=== PATIENT | male | born 1945 | race African-American/Black ===

== ENCOUNTER 2018-04-25 12:14 | Emergency (ER) | payer MEDICARE, OTHER ==
[~2018-04-25] VITALS: Ht 175.3 cm; Wt 102.5 kg
[~2018-04-25 12:14] MED LIST: CIPROFLOXACIN500 M2 ORAL; GABAPENTIN100 MG ORAL; GLIPIZIDE5 MG ORAL; LISINOPRIL5 MG ORAL; METFORMIN HCL500 M1 ORAL; NITROFURANTOIN100 M2 ORAL; NORCO 5-325 TA1 EACH ORAL; OFLOXACIN5 ML LEFT EAR
--- NOTE | 2018-04-25 12:45 | Emergency Room Report ---
History of Present Illness General Chief Complaint: Eye Problems Source: Patient Present Illness HPI patient is a 72-year-old male with significant past medical history of diabetes controlled, hypertension controlled, here complaining of one day of pain in the right eye and foreign body sensation. Patient also complains of yellow discharge from the right, denies blurred vision, denies pruritus, denies trauma to the eye. Denies SOB, chest pain, headache, dizziness as rhinorrhea Allergies: Coded Allergies: No Known Allergies (Unverified , 11/19/15) Patient History Past Medical History: see triage record Past Surgical History: none, unable to obtain Pertinent Family History: none Immunizations: UTD Reviewed Nursing Documentation: PMH: Agreed; PSxH: Agreed Nursing Documentation-PMH Past Medical History: No Stated History Hx Hypertension: Yes Hx Diabetes: Yes Review of Systems All Other Systems: negative except mentioned in HPI Physical Exam Vital Signs Date Time Temp Pulse Resp B/P (MAP) Pulse Ox O2 Delivery O2 Flow Rate FiO2 04/25/18 12:20 98.2 88 16 139/88 93 Room Air 98.2 Sp02 EP Interpretation: reviewed, normal General Appearance: normal inspection, well appearing, no apparent distress Eyes: bilateral eye PERRL, bilateral eye visual acuity - normal, bilateral eye other - superficial foreign body observed in her right cornea, abrasion of right cornea ENT: normal ENT inspection Neck: normal inspection, full range of motion, supple Respiratory: normal inspection, chest non-tender, lungs clear, normal breath sounds, no rhonchi, no respiratory distress Cardiovascular #1: normal inspection, normal peripheral pulses, regular rate, rhythm, no edema, no murmur Gastrointestinal: normal inspection, normal bowel sounds, soft Rectal: deferred Genitourinary: deferred Musculoskeletal: normal inspection, back normal Neurologic: normal inspection, alert, oriented x3 Psychiatric: normal inspection, judgement/insight normal, memory normal Skin: normal inspection, normal color, no rash Lymphatic: normal inspection, no adenopathy, axilla node tender (R) Medical Decision Making PA Attestation all orders, diagnosis, treatment plans were reviewed and discussed with my supervising physician Dr. Mishra Diagnostic Impression: Primary Impression: Foreign body, eye Additional Impressions: Corneal abrasion Eczema ER Course patient is a 72-year-old male with significant past medical history of diabetes controlled, hypertension controlled, here complaining of one day of pain in the right eye and foreign body sensation. Patient also complains of yellow discharge from the right, denies blurred vision, denies pruritus, denies trauma to the eye. Denies SOB, chest pain, headache, dizziness as rhinorrhea Ddx considered but are not limited to foreign body in the eye, corneal abrasion Vital signs: are WNL, pt. is afebrile H&PE are most consistent with and foreign body/corneal abrasion [facility] INTERVENTIONS: None required at this time. DISCHARGE: At this time pt. is stable for d/c to home. Will provide printed patient care instructions, and any necessary prescriptions. Care plan and follow up instructions have been discussed with the patient prior to discharge. patient to follow up with economics consultant in 2 days, 15-lead revision or any other vision changes or conjunctivae. Last Vital Signs Date Time Temp Pulse Resp B/P (MAP) Pulse Ox O2 Delivery O2 Flow Rate FiO2 04/25/18 12:20 98.2 88 16 139/88 93 Room Air 98.2 Disposition: HOME, SELF-CARE Condition: Stable Scripts Triamcinolone (TRIAMCINOLONE) 10 Gm Powder 10 GM MC BID for 10 Days, #1 TUBE Prov: Ngozi Pinon P.A. 04/25/18 Ciprofloxacin (Ciprofloxacin HCl) 2.5 Ml Drops 2 DROP RIGHT EYE Q4H for 7 Days, #2 ML Prov: Ngozi Pinon P.A. 04/25/18 Patient Instructions: Corneal Abrasion, Eczema, Eye Foreign Body Additional Instructions: see ophthalmalogist as soon as possible. use eye drops as directed. avoid rubbing your eyes. Ngozi Pinon Apr 25, 2018 12:45
[2018-04-25] MEDS ORDERED: CILOXAN 0.3% O1 DROP RIGHT EYE (12:46)
[2018-04-25] MEDS ORDERED: TRIAMCINOLONE10 G1 MC (12:46)
[2018-04-25 12:54] VITALS: BP 139/88
== END 2018-04-25 12:51 | disposition home or self-care (01) ==
LOC: EMR 12:35
DX: T15.01XA Foreign body in cornea, right eye, initial encounter (principal); L30.9 Dermatitis, unspecified; E11.9 Type 2 diabetes mellitus without complications; I10 Essential (primary) hypertension; X58.XXXA Exposure to other specified factors, initial encounter; Y92.9 Unspecified place or not applicable
CPT/HCPCS: 99284

== ENCOUNTER 2018-12-08 16:11 | Emergency (ER) | payer MEDICARE, OTHER ==
[~2018-12-08] VITALS: Ht 176.5 cm; Wt 104.3 kg
[~2018-12-08 16:11] MED LIST changes: +CILOXAN 0.3% O1 DROP RIGHT EYE; +TRIAMCINOLONE10 G1 MC
--- NOTE | 2018-12-08 16:32 | NUR ---
ED Nurse Note: Pt BIBA due to pain in the back. Rating the pain a 10/10. Non radiating. Pt states that he fell at home. No LOC. Pt has hx of chronic back pain.
[2018-12-08 16:33] VITALS: BP 120/85
--- NOTE | 2018-12-08 17:13 | NUR ---
ED Nurse Note: Notified Ct of order.
[2018-12-08] MEDS ORDERED: Norco 5mg/325mg tab ORAL ONE (17:15)
--- NOTE | 2018-12-08 17:19 | NUR ---
ED Nurse Note: Pt went down to CT.
--- NOTE | 2018-12-08 17:31 | NUR ---
ED Nurse Note: Pt back from CT.
--- NOTE | 2018-12-08 18:02 | Emergency Room Report ---
History of Present Illness General Chief Complaint: Lower Back Pain or Injury Source: Medical Record Present Illness HPI 73-year-old male presents to the emergency department complaining of 10/10 in severity exacerbation of his chronic low back pain status post mechanical fall yesterday. Patient reports significant pain to the lumbar area since yesterday. He denies recent spinal procedures or history of neoplastic disease.Denies numbness tingling or loss of sensation or gross motor movements of the extremities, incontinence of bowel or bladder. Denies CP, Palpitations, LOC, AMS, dizziness, Changes in Vision, weakness or a sudden severe headache. Walking, sitting, lying flat all exacerbated his symptoms. Patient denies any relieving factors at this time Allergies: Coded Allergies: No Known Allergies (Unverified , 11/19/15) Patient History Past Medical History: see triage record Past Surgical History: none Pertinent Family History: none Reviewed Nursing Documentation: PMH: Agreed; PSxH: Agreed Nursing Documentation-PMH Past Medical History: No History, Except For Hx Hypertension: Yes Hx Diabetes: Yes Review of Systems All Other Systems: negative except mentioned in HPI Physical Exam Vital Signs Date Time Temp Pulse Resp B/P (MAP) Pulse Ox O2 Delivery O2 Flow Rate FiO2 12/08/18 16:10 98.1 100 18 128/90 99 Room Air Sp02 EP Interpretation: reviewed, normal General Appearance: alert, GCS 15, non-toxic, mild distress Head: normocephalic, atraumatic Eyes: bilateral eye normal inspection, bilateral eye PERRL ENT: hearing grossly normal, normal voice Neck: full range of motion Respiratory: lungs clear, normal breath sounds, speaking full sentences Cardiovascular #1: regular rate, rhythm, normal capillary refill Gastrointestinal: non tender, soft, no guarding Genitourinary: normal inspection Musculoskeletal: back normal, gait/station normal, normal range of motion, tender - Paraspinal and midline TTP to the lumbar area, Pt. ambulatory, and has FROM with pain. no evidence of infection. Neurologic: alert, oriented x3, responsive, motor strength/tone normal, sensory intact, normal gait, speech normal, grossly normal Psychiatric: judgement/insight normal Skin: normal color, no rash, warm/dry, well hydrated Medical Decision Making PA Attestation Dr. Llanos is my supervising Physician whom patient management has been discussed with. Diagnostic Impression: Primary Impression: Low back pain Qualified Codes: M54.5 - Low back pain; G89.29 - Other chronic pain ER Course 73-year-old male presents to the emergency department complaining of 10/10 in severity exacerbation of his chronic low back pain status post mechanical fall yesterday. Patient reports significant pain to the lumbar area since yesterday. He denies recent spinal procedures or history of neoplastic disease.Denies numbness tingling or loss of sensation or gross motor movements of the extremities, incontinence of bowel or bladder. Denies CP, Palpitations, LOC, AMS, dizziness, Changes in Vision, weakness or a sudden severe headache. Walking, sitting, lying flat all exacerbated his symptoms. Patient denies any relieving factors at this time Ddx considered: epidural abscess, fracture, sprain/strain, meningitis, spinal chord injury, sciatica, cauda equina, Pyelonephritis, renal calculi just to name a few. Vital signs reviewed and are WNL during ED visit. Pt. is afebrile with no signs of infection No new symptoms, and denies recent trauma. No saddle anesthesia noted, Pt. denies incontinence Neurovascular is intact ROM is limited due to pain * Mild Tenderness to palpation to paraspinal muscles of the lower back with midline tenderness. *Pt. describes pain today as moderate and radiates across the lower back. ORDERS: CT L-Spine : Unremarkable INTERVENTIONS: - [place] PO -Lidoderm -I do not identify an emergent condition at this time. With current presentation , pt. is stable for close outpatient follow up and conservative treatment. D/ w pt. to return promptly to ED with worsening or new symptoms.- Pt. verbalizes' understanding and agreement with proposed treatment plan.proposed treatment plan. D/W Pt. that for further pain management is it recommended to consult PCP or a Chronic Pain management doctor. A provider who can safely prescribe controlled substances with close follow up. DISCHARGE: At this time pt. is stable for d/c to home. Will provide printed patient care instructions, and any necessary prescriptions. Care plan and follow up instructions have been discussed with the patient prior to discharge. CT/MRI/US Diagnostic Results CT/MRI/US Diagnostic Results : Imaging Test Ordered: CT L-Spine No Contrast Impression No evidence of Acute fx. Per official radiology report- Please see report for specific details. Last Vital Signs Date Time Temp Pulse Resp B/P (MAP) Pulse Ox O2 Delivery O2 Flow Rate FiO2 12/08/18 17:39 98.1 12/08/18 16:33 77 18 120/85 99 Room Air Status: improved Disposition: HOME, SELF-CARE Condition: Stable Scripts Lidocaine (Lidoderm) 1 Each Adh..patch 1 PATCH TOPIC DAILY, #30 PATCH 0 Refills Patch(es) may remain in place for up to 12 hours in any 24-hour period. Prov: Alejandra Mack 12/08/18 Methocarbamol* (ROBAXIN-750*) 750 Mg Tablet 750 MG PO QID, #28 TAB 0 Refills Prov: Alejandra Mack 12/08/18 Tramadol Hcl* (ULTRAM*) 50 Mg Tablet 50 MG ORAL Q6H PRN for For Pain, #16 TAB 0 Refills Prov: Alejandra Mack 12/08/18 Patient Instructions: Back Pain, Adult Additional Instructions: Take medications as directed. Follow up with a PCP for a SPINAL /TRUCK HOP referral in 3-5 days, even if your symptoms have resolved. If symptoms persist MRI may be required at the discretion of your PCP or Ortho Specialist. --Please review list of primary care clinics, if you do not already have a primary care provider who can give you an Orthopedic Referral. Return sooner to ED if new symptoms occur, or current symptoms become worse. Do not drink alcohol, drive, or operate heavy machinery while taking Tramadol as this may cause drowsiness. - Please note that this Emergency Department Report was dictated using YOH[employer]te[employer] tree farmer technology software, occasionally this can lead to erroneous entry secondary to interpretation by the dictation equipment. Alejandra Mack Dec 08, 2018 18:02
[2018-12-08] MEDS ORDERED: ROBAXIN-750750 MG PO (18:03)
[2018-12-08] MEDS ORDERED: LIDODERM700 M1 TOPIC (18:03)
[2018-12-08] MEDS ORDERED: TRAMADOL HCL50 MG ORAL (18:03)
[2018-12-08 18:31] VITALS: BP 137/85
--- NOTE | 2018-12-08 18:34 | NUR ---
ED Nurse Note: pt given dc aci and reading of ct scan. scripts given pt requests po food, given to pt prior to dc. family driving pt home. pt assisted out to car via wheelchair.
--- NOTE | 2018-12-09 08:42 | Diagnostic Imaging Report ---
Indications: Pain status post fall Technique: Spiral acquisitions obtained through the lumbar spine. Multiplanar reconstructions were generated. No IV contrast utilized. Total dose length product 669.55 mGycm. CTDIvol(s) 21.08 mGy. Dose reduction achieved using automated exposure control Comparison: none Findings: There is a transitional lumbosacral segment. There are, however, 5 nonrib-bearing lumbar-type vertebral bodies which will be numbered L1-L5 for purposes of this report. There is very slight retrolisthesis of L2 on L3. The remainder of the bony alignment is normal. No acute fractures. No dislocations. Vertebral body heights are preserved. There is degenerative disc narrowing at L3-4 and L4-5, and degenerative vacuum formation at L5-S1. At T12-L1, facet arthrosis results in mild bilateral neural foraminal stenosis. No significant disc bulge or protrusion or spinal stenosis. The disc space is preserved At L3-4, bilateral facet arthrosis, circumferential annular bulge, and posterior osteophytes result in moderate to severe right, mild left neural foraminal stenosis. The posterior disc bulge and osteophytes result in borderline narrowing of the spinal canal. At L4-5, bilateral facet arthrosis and circumferential annular bulge and posterior osteophytes result in mild to moderate narrowing the bilateral neural foramina. There is circumferential annular bulge which does not significantly narrow the spinal canal. At L5-S1, facet arthrosis and the circumferential annular bulge results in moderate narrowing of the bilateral neural foramina.. No significant spinal stenosis despite the bulging disc. At the remaining disc levels, no significant disc bulge or protrusion, spinal stenosis, or neural foraminal narrowing is demonstrated. The included extra spinal demonstrate mild bilateral adrenal hypertrophy. Renal cysts are seen on the right.. Impression: No acute bony trauma Multilevel degenerative changes, as detailed on a level by level basis above. Bilateral adrenal hypertrophy. Consider further workup with CT or MRI Right renal cysts incidentally noted This agrees with the preliminary interpretation provided overnight by [facility] teleradiology service. The CT scanner at [facility] is accredited by the [employer] and the scans are performed using protocols designed to limit radiation exposure to as low as reasonably achievable to attain images of sufficient resolution adequate for diagnostic evaluation.
== END 2018-12-08 18:35 | disposition home or self-care (01) ==
LOC: EDBD 16:11 → EMR 16:50
DX: M54.5 Low back pain (principal); W19.XXXA Unspecified fall, initial encounter; Y92.9 Unspecified place or not applicable; G89.29 Other chronic pain; I10 Essential (primary) hypertension; E11.9 Type 2 diabetes mellitus without complications; N28.1 Cyst of kidney, acquired; M47.816 Spondylosis without myelopathy or radiculopathy, lumbar region; M47.817 Spondylosis without myelopathy or radiculopathy, lumbosacral region
CPT/HCPCS: 72131; 99284

== ENCOUNTER 2019-05-02 14:39 | Emergency (ER) | payer MEDICARE, OTHER ==
[~2019-05-02] VITALS: Ht 177.8 cm; Wt 100.7 kg
[~2019-05-02 14:39] MED LIST changes: +LIDODERM700 M1 TOPIC; +ROBAXIN-750750 MG PO; +TRAMADOL HCL50 MG ORAL
[2019-05-02 14:43] VITALS: BP 125/86
--- NOTE | 2019-05-02 14:45 | NUR ---
ED Nurse Note: Patient walked into ED with his family member c/o chronic lower back pain for "months" patient reports he has been diagnosed with benign cyst on his back and the pain is botherig him, sometimes it radiates to his left lower leg.
[2019-05-02] MEDS ORDERED: traMADol 50mg tab ORAL ONE (15:30)
--- NOTE | 2019-05-02 15:39 | Emergency Room Report ---
History of Present Illness General Chief Complaint: Back Pain-No Injury Source: Patient Present Illness HPI 73 YO male presents to the ED c/o 07/28 in severity lower back pain that is consistent in character to what he has felt during exacerbations in the past. Patient reports history of bulging disks in the lumbar spine. Patient denies trauma or fall. appt with dr. Rincon for his pain management. Denies numbness tingling or loss of sensation or gross motor movements of the extremities, incontinence of bowel or bladder. Pt. denies night sweats, fevers, chills, recent spinal procedures or hx of neoplastic disease. Denies CP, Palpitations, LOC, AMS, dizziness, Changes in Vision, weakness or a sudden severe headache. Patient is also complaining of having a burning sensation in his throat with chronic cough that is worse at night x months as well. Allergies: Coded Allergies: No Known Allergies (Unverified , 11/19/15) Patient History Past Medical History: see triage record Past Surgical History: none Pertinent Family History: none Reviewed Nursing Documentation: PMH: Agreed; PSxH: Agreed Nursing Documentation-PMH Past Medical History: No History, Except For Hx Hypertension: Yes Hx Diabetes: Yes Review of Systems All Other Systems: negative except mentioned in HPI Physical Exam Vital Signs Date Time Temp Pulse Resp B/P (MAP) Pulse Ox O2 Delivery O2 Flow Rate FiO2 05/02/19 14:43 98.8 86 15 125/86 (99) 94 Room Air Sp02 EP Interpretation: reviewed, normal General Appearance: no apparent distress, alert, GCS 15, non-toxic Head: normocephalic, atraumatic Eyes: bilateral eye normal inspection, bilateral eye PERRL ENT: hearing grossly normal, normal voice Neck: full range of motion, no bony tend Respiratory: chest non-tender, lungs clear, normal breath sounds, no respiratory distress, no accessory muscle use, no wheezing, speaking full sentences Cardiovascular #1: regular rate, rhythm, no edema Gastrointestinal: normal bowel sounds, non tender, soft Genitourinary: normal inspection, no CVA tenderness Musculoskeletal: gait/station normal, normal range of motion, tender - Tenderness to palpation to paraspinal muscles of the lower back with some midline tenderness as well. Neurologic: alert, oriented x3, responsive, motor strength/tone normal, sensory intact, speech normal, grossly normal Psychiatric: judgement/insight normal Medical Decision Making PA Attestation Dr. Mishra Is my supervising Physician whom patient management has been discussed with. Diagnostic Impression: Primary Impression: Back pain Qualified Codes: M54.42 - Lumbago with sciatica, left side Additional Impression: Chronic coughing ER Course 73 YO male presents to the ED c/o 07/28 in severity lower back pain that is consistent in character to what he has felt during exacerbations in the past. Patient reports history of bulging disks in the lumbar spine. Patient denies trauma or fall. appt with dr. Rincon for his pain management. Denies numbness tingling or loss of sensation or gross motor movements of the extremities, incontinence of bowel or bladder. Pt. denies night sweats, fevers, chills, recent spinal procedures or hx of neoplastic disease. Denies CP, Palpitations, LOC, AMS, dizziness, Changes in Vision, weakness or a sudden severe headache. Patient is also complaining of having a burning sensation in his throat with chronic cough that is worse at night x months as well. Ddx considered: epidural abscess, fracture, sprain/strain, meningitis, spinal chord injury, sciatica, cauda equina, Pyelonephritis, renal calculi just to name a few. Vital signs reviewed and are WNL during ED visit. Pt. is afebrile with no signs of infection No new symptoms, and denies recent trauma. No saddle anesthesia noted, Pt. denies incontinence Neurovascular is intact * Tenderness to palpation to paraspinal muscles of the lower back with some midline tenderness as well. ORDERS: none warranted at this time. INTERVENTIONS: - lidoderm patch -Tramadol PO D/W Pt. that for further pain management is it recommended to consult PCP or a Chronic Pain management doctor. A provider who can safely prescribe controlled substances with close follow up. DISCHARGE: At this time pt. is stable for d/c to home. Will provide printed patient care instructions, and any necessary prescriptions. Care plan and follow up instructions have been discussed with the patient prior to discharge. Last Vital Signs Date Time Temp Pulse Resp B/P (MAP) Pulse Ox O2 Delivery O2 Flow Rate FiO2 05/02/19 14:43 98.8 73 15 125/86 94 Room Air Disposition: HOME, SELF-CARE Condition: Stable Scripts Ranitidine Hcl* (ZANTAC*) 150 Mg Tablet 150 MG ORAL TWICE A DAY for 10 Days, #20 TAB Prov: Alejandra Mack 05/02/19 Tramadol Hcl* (ULTRAM*) 50 Mg Tablet 50 MG ORAL Q6H PRN for For Pain, #15 TAB 0 Refills Prov: Alejandra Mack 05/02/19 Referrals: [facility] Patient Instructions: Back Pain, Adult, Food Choices for Gastroesophageal Reflux Disease, Adult Additional Instructions: Take medications as directed. Follow up with a Primary Care Provider in 3-5 days, even if your symptoms have resolved. PAIN MANAGEMENT/ SPINE ORTHOPEDIC REFERRAL - Return sooner to ED if new symptoms occur, or current symptoms become worse. Do not drink alcohol, drive, or operate heavy machinery while taking Tramadol as this may cause drowsiness. - Please note that this Emergency Department Report was dictated using [employer] finisher tailor technology software, occasionally this can lead to erroneous entry secondary to interpretation by the dictation equipment. Alejandra Mack May 02, 2019 15:39
[2019-05-02] MEDS ORDERED: TRAMADOL HCL50 MG ORAL (15:41)
[2019-05-02] MEDS ORDERED: ZANTAC150 MG ORAL (15:41)
[2019-05-02 15:51] VITALS: BP 125/86
--- NOTE | 2019-05-02 15:52 | NUR ---
ER DISCHARGE NOTE: Patient is cleared to be discharged per LELE Domingo, pt is aox4, on room air, with stable vital signs. pt was given dc and prescription instructions, pt was able to verbalize understanding, pt id band removed without complications. pt is able to ambulate with steady gait. pt took all belongings.
== END 2019-05-02 15:50 | disposition home or self-care (01) ==
LOC: EMR 15:14
DX: M54.42 Lumbago with sciatica, left side (principal); R05 Cough; E11.9 Type 2 diabetes mellitus without complications; I10 Essential (primary) hypertension
CPT/HCPCS: 99282

== ENCOUNTER 2019-10-03 09:50 | Emergency (ER) | payer MEDICARE, OTHER ==
[~2019-10-03] VITALS: Ht 175.3 cm; Wt 104.3 kg
[~2019-10-03 09:50] MED LIST changes: +ZANTAC150 MG ORAL
[2019-10-03] MEDS ORDERED: JENTADUETO 2.51 EAC2 PO (10:20)
[2019-10-03] MEDS ORDERED: GLIPIZIDE5 MG ORAL (10:20)
[2019-10-03] MEDS ORDERED: ATENOLOL25 MG ORAL (10:20)
[2019-10-03] MEDS ORDERED: MELOXICAM15 MG PO (10:20)
[2019-10-03] MEDS ORDERED: LISINOPRIL-HCT1 EAC2 ORAL (10:20)
[2019-10-03] MEDS ORDERED: ASPIRIN81 MG ORAL (10:20)
[2019-10-03 10:25] VITALS: BP 124/77
--- NOTE | 2019-10-03 10:27 | Emergency Room Report ---
History of Present Illness General Chief Complaint: Back Pain-No Injury Source: Patient Present Illness HPI Patient is a 73-year-old male who presents after increased low back pain for the past 3 days. He had prior history of chronic back pain in the past. He is currently been seen by pain management. He is currently taking muscle relaxant and states he did take Robaxin prior to arrival. Reports having persistent pain. Pain was primarily on the low left side of his back. He had previous CT imaging which showed multilevel degenerative changes as well as bulging disks. He reports urinating normally. He denies any fever. Is not been vomiting. Allergies: Coded Allergies: No Known Allergies (Unverified , 11/19/15) Patient History Past Medical History: see triage record Reviewed Nursing Documentation: PMH: Agreed; PSxH: Agreed Nursing Documentation-PMH Hx Hypertension: Yes Hx Diabetes: Yes Review of Systems All Other Systems: negative except mentioned in HPI Physical Exam Vital Signs Date Time Temp Pulse Resp B/P (MAP) Pulse Ox O2 Delivery O2 Flow Rate FiO2 10/03/19 10:05 98.8 78 20 127/79 (95) 98 Room Air General Appearance: well appearing, alert, Chronically Ill Head: normocephalic, atraumatic ENT: hearing grossly normal, normal voice Neck: full range of motion, supple Respiratory: no respiratory distress, speaking full sentences Cardiovascular #1: normal peripheral pulses, regular rate, rhythm, no edema Gastrointestinal: normal inspection Musculoskeletal: decreased range of mation Neurologic: alert, motor strength/tone normal, food adviser III-XII nml as tested, normal gait Psychiatric: mood/affect normal Skin: no rash Medical Decision Making Diagnostic Impression: Primary Impression: Exacerbation of chronic back pain ER Course Patient presented for low back pain. Differential diagnosis included but was not limited to herniated disc, cauda equina syndrome, abdominal aortic aneurysm , perforated ulcer, spinal epidural abscess, spinal stenosis, lumbar fracture, metastatic lesion, pyelonephritis. Patient was noted to have a benign exam and history. Does not show any signs of incontinence or urinary retention. Patient was given IM Toradol as well as oral pain medication. Patient did not have any recent trauma and had recent imaging studies. Patient is currently being followed by pain management. He was given a short-term prescription for pain medications and was advised to follow-up with his primary care physician or pain management for recheck Patient to return for any worsening, pain, fever, incontinence or other concerns. Patient appears to be stable for outpatient management. The patient is advised to follow up with primary care doctor in 1-2 days. Patient is advised to return if any worsening condition or if any changes in status that are concerning. This report is dictated with [employer] analytics analyst software which may occasionally lead to discrepancies related to use of this software. Last Vital Signs Date Time Temp Pulse Resp B/P (MAP) Pulse Ox O2 Delivery O2 Flow Rate FiO2 10/03/19 10:05 98.8 78 20 127/79 (95) 98 Room Air Status: improved Disposition: HOME, SELF-CARE Condition: Stable Scripts Tramadol Hcl* (ULTRAM*) 50 Mg Tablet 50 MG ORAL Q6H PRN for For Pain, #10 TAB 0 Refills Prov: Yahir Llanos MD 10/03/19 Yahir Llanos MD Oct 03, 2019 10:27
[2019-10-03] MEDS ORDERED: TRAMADOL HCL50 MG ORAL (10:30)
[2019-10-03] MEDS ORDERED: Ketorolac 60mg Inj IM ONE (10:30)
[2019-10-03] MEDS ORDERED: HYDROcodone/Acetamin 5/325 tab ORAL ONE (10:30)
[2019-10-03 11:10] VITALS: BP 120/75
== END 2019-10-03 11:10 | disposition home or self-care (01) ==
LOC: EMR 10:32
DX: G89.29 Other chronic pain (principal); M54.5 Low back pain; E11.9 Type 2 diabetes mellitus without complications; I10 Essential (primary) hypertension
CPT/HCPCS: 96372; 99283

== ENCOUNTER 2020-03-17 14:40 | Emergency (ER) | payer MEDICARE, OTHER ==
[~2020-03-17] VITALS: Ht 175.3 cm; Wt 103.4 kg
[2020-03-17 14:40] VITALS: BP 110/67
[~2020-03-17 14:40] MED LIST changes: +ASPIRIN81 MG ORAL; +ATENOLOL25 MG ORAL; +JENTADUETO 2.51 EAC2 PO; +LISINOPRIL-HCT1 EAC2 ORAL; +MELOXICAM15 MG PO
[2020-03-17] MEDS ORDERED: Omnipaque-300 100ml vial INJ PRN (14:45)
[2020-03-17] MEDS ORDERED: Docusate 100mg cap ORAL ONE ×2 (14:45→14:47)
[2020-03-17 14:53] LABS: BASOPHILS % (AUTO) 1.6 % (0.0-2.0); HEMATOCRIT 42.5 % (42.0-52.0); MEAN CORPUSCULAR VOLUME 82 FL (80-99); MONOCYTES % (AUTO) 7.7 % (1.0-10.0); NEUTROPHILS % (AUTO) 65.8 % (45.0-75.0); PLATELET COUNT 301 K/UL (150-450); RED CELL DISTRIBUTION WIDTH 13.9 % (11.6-14.8); WHITE BLOOD COUNT 12.6 K/UL (4.8-10.8)
[2020-03-17] MEDS ORDERED: NORCO 10-325 T1 EACH ORAL (14:58)
[2020-03-17] MEDS ORDERED: GLIPIZIDE5 MG ORAL (14:58)
[2020-03-17 15:12] LABS: ANION GAP 9 mmol/L (5-15); BLOOD UREA NITROGEN 16 mg/dL (7-18); CALCIUM 9.8 MG/DL (8.5-10.1); CARBON DIOXIDE 29 MMOL/L (21-32); CHLORIDE 101 MMOL/L (98-107); CREATININE 1.5 MG/DL (0.55-1.30); POTASSIUM 4.1 MMOL/L (3.5-5.1); SODIUM 139 MMOL/L (136-145)
[2020-03-17 15:17] LABS: ALANINE AMINOTRANSFERASE 44 U/L (12-78); ALBUMIN 3.4 G/DL (3.4-5.0); ALBUMIN/GLOBULIN RATIO 0.7 (1.0-2.7); ALKALINE PHOSPHATASE 65 U/L (46-116); ASPARTATE AMINO TRANSFERASE 26 U/L (15-37); BILIRUBIN,TOTAL 0.3 MG/DL (0.2-1.0)
--- NOTE | 2020-03-17 15:55 | Diagnostic Imaging Report ---
EXAM: CT Abdomen and Pelvis Without Intravenous Contrast CLINICAL HISTORY: PAIN TECHNIQUE: Axial computed tomography images of the abdomen and pelvis without intravenous contrast. CTDI is 10.8 mGy and DLP is 616.4 mGy-cm. One or more of the following dose reduction techniques were used: automated exposure control, adjustment of the mA and/or kV according to patient size, use of iterative reconstruction technique. COMPARISON: CT lumbar spine on 12/08/2018 FINDINGS: Lung bases: Mild dependent atelectasis bilaterally. Heart: Mild cardiomegaly. ABDOMEN: Liver: Hepatic steatosis. Gallbladder and bile ducts: Unremarkable. No calcified stones. No ductal dilation. Pancreas: Unremarkable. No ductal dilation. Spleen: Small splenules. Adrenals: Nonspecific nodular thickening of the adrenal glands. Kidneys and ureters: Bilateral renal cysts. No hydronephrosis or stone. Nonspecific mild bilateral perinephric fat stranding. Stomach and bowel: Evaluation of the stomach is limited by decompression. Diverticulosis without evidence of diverticulitis. No bowel obstruction. PELVIS: Appendix: Normal appendix. Bladder: Prominence of the bladder wall may be secondary to underdistention. Please correlate with urinalysis if concerned for cystitis. No stones. Reproductive: Unremarkable as visualized. ABDOMEN and PELVIS: Intraperitoneal space: Unremarkable. No free air. No significant fluid collection. Bones/joints: Lumbosacral transitional anatomy. Degenerative changes of the spine. No acute fracture. No dislocation. Soft tissues: Small fat-containing umbilical hernia. Vasculature: Atherosclerotic changes of the vasculature. No aortic aneurysm. Lymph nodes: Small cardiophrenic lymph nodes. IMPRESSION: Prominence of the bladder wall may be secondary to underdistention. Please correlate with urinalysis if concerned for cystitis. Nonspecific nodular thickening of the adrenal glands.
[2020-03-17] MEDS ORDERED: HYDROcodone/Acetamin 10/325 tab ORAL ONE (16:30)
[2020-03-17] MEDS ORDERED: Magnesium Citrate Liq Btl ORAL ONE (16:30)
[2020-03-17] MEDS ORDERED: Fleet's Enema 133ml RECTAL ONE (16:30)
--- NOTE | 2020-03-17 16:56 | Emergency Room Report ---
History of Present Illness General Chief Complaint: Constipation Source: Patient Present Illness HPI Patient presents with complaints of constipation reports that he had taken a stool softener which worked well however 5 days ago he had decreased bowel movement and that continues patient reports that he suffers from chronic low back pain And he takes [place] for this Patient reports that he had taken some [id number] medication however that is not relieving his symptoms at this time Denies any vomiting or diarrhea denies any chest pain denies any fevers or chills Allergies: Coded Allergies: No Known Allergies (Unverified , 11/19/15) COVID-19 Screening Contact w/high risk pt: No Recent Travel to affected area: No Experienced COVID-19 symptoms?: No COVID-19 Testing performed FISH HATCHERY MANAGER: No Patient History Past Medical History: see triage record Reviewed Nursing Documentation: PMH: Agreed; PSxH: Agreed Nursing Documentation-PMH Past Medical History: No History, Except For Hx Hypertension: Yes Hx Diabetes: Yes Review of Systems All Other Systems: negative except mentioned in HPI Physical Exam Vital Signs Date Time Temp Pulse Resp B/P (MAP) Pulse Ox O2 Delivery O2 Flow Rate FiO2 03/17/20 14:31 98.1 84 19 110/67 (81) 98 Room Air Sp02 EP Interpretation: reviewed, normal General Appearance: well appearing, no apparent distress Head: normocephalic, atraumatic Eyes: bilateral eye PERRL, bilateral eye EOMI ENT: hearing grossly normal, normal pharynx, TMs + canals normal, uvula midline Neck: full range of motion, supple, no meningismus, no bony tend Respiratory: lungs clear, normal breath sounds, no rhonchi, no respiratory distress, no retraction, no accessory muscle use Cardiovascular #1: normal peripheral pulses, regular rate, rhythm, no edema, no gallop, no JVD, no murmur Gastrointestinal: normal bowel sounds, non tender, soft, no mass, no organomegaly, non-distended, no guarding, no hernia, no pulsatile mass, no rebound Genitourinary: no CVA tenderness Musculoskeletal: other - Left fingers are flexed from previous injury Neurologic: motor strength/tone normal, running rigger III-XII nml as tested, oriented x3 , sensory intact, responsive Psychiatric: mood/affect normal Skin: no rash Lymphatic: normal inspection, no adenopathy Medical Decision Making Diagnostic Impression: Primary Impression: Exacerbation of chronic back pain Additional Impression: Abdominal pain ER Course Multiple differentials and consideration including but not limited to bowel obstruction, ileus, stool retention patient CT imaging does not show any evidence of bowel obstruction Patient requesting enema Magnesium citrate was also provided Patient did have a bowel movement and reports he feels significantly improved given his age and comorbidities given the discomfort initially I felt patient was appropriate candidate for inpatient evaluation however at this time patient refuses inpatient care reports that he feels significantly improved And will return if anything changes Labs Test 03/17/20 14:44 White Blood Count 12.6 K/UL (4.8-10.8) Red Blood Count 5.20 M/UL (4.70-6.10) Hemoglobin 14.0 G/DL (14.2-18.0) Hematocrit 42.5 % (42.0-52.0) Mean Corpuscular Volume 82 FL (80-99) Mean Corpuscular Hemoglobin 26.8 PG (27.0-31.0) Mean Corpuscular Hemoglobin Concent 32.8 G/DL (32.0-36.0) Red Cell Distribution Width 13.9 % (11.6-14.8) Platelet Count 301 K/UL (150-450) Mean Platelet Volume 7.6 FL (6.5-10.1) Neutrophils (%) (Auto) 65.8 % (45.0-75.0) Lymphocytes (%) (Auto) 22.0 % (20.0-45.0) Monocytes (%) (Auto) 7.7 % (1.0-10.0) Eosinophils (%) (Auto) 3.0 % (0.0-3.0) Basophils (%) (Auto) 1.6 % (0.0-2.0) Prothrombin Time 11.1 SEC (9.30-11.50) Prothromb Time International Ratio 1.0 (0.9-1.1) Activated Partial Thromboplast Time 29 SEC (23-33) Sodium Level 139 MMOL/L (136-145) Potassium Level 4.1 MMOL/L (3.5-5.1) Chloride Level 101 MMOL/L (98-107) Carbon Dioxide Level 29 MMOL/L (21-32) Anion Gap 9 mmol/L (5-15) Blood Urea Nitrogen 16 mg/dL (7-18) Creatinine 1.5 MG/DL (0.55-1.30) Estimat Glomerular Filtration Rate 55.3 mL/min (>60) Glucose Level 93 MG/DL (74-106) Calcium Level 9.8 MG/DL (8.5-10.1) Total Bilirubin 0.3 MG/DL (0.2-1.0) Aspartate Amino Transf (AST/SGOT) 26 U/L (15-37) Alanine Aminotransferase (ALT/SGPT) 44 U/L (12-78) Alkaline Phosphatase 65 U/L (46-116) Total Protein 8.4 G/DL (6.4-8.2) Albumin 3.4 G/DL (3.4-5.0) Globulin 5.0 g/dL Albumin/Globulin Ratio 0.7 (1.0-2.7) Rhythm Strip Diag. Results EP Interpretation: yes Rate: 77 Rhythm: NSR, no PVC's, no ectopy CT/MRI/US Diagnostic Results CT/MRI/US Diagnostic Results : Impression CT abdomen pelvisIMPRESSION: Prominence of the bladder wall may be secondary to underdistention. Please correlate with urinalysis if concerned for cystitis. Nonspecific nodular thickening of the adrenal glands. Last Vital Signs Date Time Temp Pulse Resp B/P (MAP) Pulse Ox O2 Delivery O2 Flow Rate FiO2 03/17/20 14:40 98.1 84 19 110/67 98 Room Air Status: improved Disposition: HOME, SELF-CARE Condition: Improved Scripts Na Phos,M-B/Na Phos,Di-Ba* (FLEET ENEMA*) 133 Ml Enema 133 ML RECTAL DAILY for 2 Days, ML 0 Refills Prov: David Green DO 03/17/20 Magnesium Citrate (MAGNESIUM CITRATE) 296 Ml Solution 150 ML PO DAILY, #300 ML Prov: David Green DO 03/17/20 Referrals: NON PHYSICIAN (PCP) Additional Instructions: Patient is provided with the discharge instructions notified to follow up with primary doctor in the next 2-3 days otherwise return to the er with any worsening symptoms. Please note that this report is being documented using Molecular Templates technology. This can lead to erroneous entry secondary to incorrect interpretation by the dictating instrument. David Green DO March 17, 2020 16:56
[2020-03-17] MEDS ORDERED: FLEET ENEMA133 ML RECTAL (17:35)
[2020-03-17] MEDS ORDERED: MAGNESIUM CITR296 M1 PO (17:35)
[2020-03-17 17:45] VITALS: BP 110/67
== END 2020-03-17 17:45 | disposition home or self-care (01) ==
LOC: EMR 16:15 → CANBEDREQ 17:50
DX: G89.29 Other chronic pain (principal); K59.00 Constipation, unspecified; R10.9 Unspecified abdominal pain; E11.9 Type 2 diabetes mellitus without complications; I10 Essential (primary) hypertension
CPT/HCPCS: 36415; 74176; 80053; 85025; 85610; 85730; 96360; 99284; J7030

== ENCOUNTER 2020-03-19 00:48 | Observation (INO) | payer MEDICARE, OTHER ==
[~2020-03-19] VITALS: Ht 170.2 cm; Wt 103.4 kg
[~2020-03-19 00:48] MED LIST changes: +FLEET ENEMA133 ML RECTAL; +MAGNESIUM CITR296 M1 PO; +NORCO 10-325 T1 EACH ORAL
[2020-03-19 01:05] VITALS: BP 113/76
[2020-03-19] MEDS ORDERED: Morphine Sulfate 4mg/ml Inj (IV USE ONLY) IVP ONE ×3 (01:15→07:00)
[2020-03-19 01:44] LABS: BASOPHILS % (AUTO) 1.1 % (0.0-2.0); EOSINOPHILS % (AUTO) 2.3 % (0.0-3.0); HEMATOCRIT 40.9 % (42.0-52.0); HEMOGLOBIN 13.9 G/DL (14.2-18.0); LYMPHOCYTES % (AUTO) 19.1 % (20.0-45.0); MEAN CORPUSCULAR VOLUME 80 FL (80-99); MONOCYTES % (AUTO) 6.2 % (1.0-10.0); NEUTROPHILS % (AUTO) 71.3 % (45.0-75.0); PLATELET COUNT 304 K/UL (150-450); RED BLOOD COUNT 5.11 M/UL (4.70-6.10); RED CELL DISTRIBUTION WIDTH 13.4 % (11.6-14.8); WHITE BLOOD COUNT 12.3 K/UL (4.8-10.8)
[2020-03-19 01:54] LABS: ANION GAP 8 mmol/L (5-15); BLOOD UREA NITROGEN 17 mg/dL (7-18); CALCIUM 9.5 MG/DL (8.5-10.1); CARBON DIOXIDE 30 MMOL/L (21-32); CHLORIDE 101 MMOL/L (98-107); CREATININE 1.5 MG/DL (0.55-1.30); POTASSIUM 3.9 MMOL/L (3.5-5.1); SODIUM 139 MMOL/L (136-145)
[2020-03-19 01:59] LABS: ALANINE AMINOTRANSFERASE 43 U/L (12-78); ALBUMIN 3.3 G/DL (3.4-5.0); ALBUMIN/GLOBULIN RATIO 0.7 (1.0-2.7); ALKALINE PHOSPHATASE 66 U/L (46-116); ASPARTATE AMINO TRANSFERASE 25 U/L (15-37); BILIRUBIN,TOTAL 0.4 MG/DL (0.2-1.0)
[2020-03-19 03:30] VITALS: BP 141/92
[2020-03-19 05:00] VITALS: BP 144/78
--- NOTE | 2020-03-19 05:02 | Emergency Room Report ---
History of Present Illness General Chief Complaint: Abdominal Pain Source: Patient Present Illness HPI Patient was here recently with complaints of abdominal pain and constipation He was advised and recommended to be admitted to the hospital however at that time he had reported that he felt better and wanted to go home Patient presents back with complaints of ongoing low back pain and now increased abdominal pain denies any vomiting denies any diarrhea reports that he was able to have a bowel movements with the medications given Denies any fevers or chills denies any focal weakness Allergies: Coded Allergies: No Known Allergies (Unverified , 11/19/15) COVID-19 Screening Contact w/high risk pt: No Recent Travel to affected area: No Experienced COVID-19 symptoms?: No COVID-19 Testing performed CENTRAL SUPPLY ASSISTANT: No Patient History Past Medical History: see triage record Reviewed Nursing Documentation: PMH: Agreed; PSxH: Agreed Nursing Documentation-PMH Hx Hypertension: Yes Hx Diabetes: Yes Review of Systems All Other Systems: negative except mentioned in HPI Physical Exam Vital Signs Date Time Temp Pulse Resp B/P (MAP) Pulse Ox O2 Delivery O2 Flow Rate FiO2 03/19/20 00:58 97.9 90 14 114/76 (89) 9 Room Air Sp02 EP Interpretation: reviewed, normal General Appearance: well appearing, no apparent distress Head: normocephalic, atraumatic Eyes: bilateral eye PERRL, bilateral eye EOMI ENT: hearing grossly normal, normal pharynx, TMs + canals normal, uvula midline Neck: full range of motion, supple, no meningismus, no bony tend Respiratory: lungs clear, normal breath sounds, no rhonchi, no respiratory distress, no retraction, no accessory muscle use Cardiovascular #1: normal peripheral pulses, regular rate, rhythm, no edema, no gallop, no JVD, no murmur Gastrointestinal: normal bowel sounds, non tender - However subjectively pointing diffusely throughout the abdomen for discomfort, soft, no mass, no organomegaly, non-distended, no guarding, no hernia, no pulsatile mass, no rebound Genitourinary: no CVA tenderness Musculoskeletal: other - Patient has fingers on the left hand flexed Neurologic: motor strength/tone normal, clinical education academic coordinator III-XII nml as tested, oriented x3 , sensory intact, responsive Psychiatric: mood/affect normal Skin: no rash Lymphatic: normal inspection, no adenopathy Medical Decision Making Diagnostic Impression: Primary Impression: Pancreatitis Additional Impression: Abdominal pain ER Course With the history exam and presentation, multiple differentials considered, including but not limited to appendicitis, gastritis, cholecystitis, diverticulitis Patient had CT imaging from yesterday and this was not repeated patient's blood work reveals mildly elevated white blood cell count patient has further hydration given increased creatinine level Pain medication given patient [place] improved however given his age and comorbidities again was recommended for further observation Please note that the patient has not been able to provide a urine sample and continues to refuse instrumentation for obtaining the urine At this time patient is agreeable to this and will have further inpatient care Labs Test 03/19/20 01:20 White Blood Count 12.3 K/UL (4.8-10.8) Red Blood Count 5.11 M/UL (4.70-6.10) Hemoglobin 13.9 G/DL (14.2-18.0) Hematocrit 40.9 % (42.0-52.0) Mean Corpuscular Volume 80 FL (80-99) Mean Corpuscular Hemoglobin 27.2 PG (27.0-31.0) Mean Corpuscular Hemoglobin Concent 33.9 G/DL (32.0-36.0) Red Cell Distribution Width 13.4 % (11.6-14.8) Platelet Count 304 K/UL (150-450) Mean Platelet Volume 8.1 FL (6.5-10.1) Neutrophils (%) (Auto) 71.3 % (45.0-75.0) Lymphocytes (%) (Auto) 19.1 % (20.0-45.0) Monocytes (%) (Auto) 6.2 % (1.0-10.0) Eosinophils (%) (Auto) 2.3 % (0.0-3.0) Basophils (%) (Auto) 1.1 % (0.0-2.0) Sodium Level 139 MMOL/L (136-145) Potassium Level 3.9 MMOL/L (3.5-5.1) Chloride Level 101 MMOL/L (98-107) Carbon Dioxide Level 30 MMOL/L (21-32) Anion Gap 8 mmol/L (5-15) Blood Urea Nitrogen 17 mg/dL (7-18) Creatinine 1.5 MG/DL (0.55-1.30) Estimat Glomerular Filtration Rate 55.3 mL/min (>60) Glucose Level 132 MG/DL (74-106) Calcium Level 9.5 MG/DL (8.5-10.1) Total Bilirubin 0.4 MG/DL (0.2-1.0) Aspartate Amino Transf (AST/SGOT) 25 U/L (15-37) Alanine Aminotransferase (ALT/SGPT) 43 U/L (12-78) Alkaline Phosphatase 66 U/L (46-116) Total Protein 8.1 G/DL (6.4-8.2) Albumin 3.3 G/DL (3.4-5.0) Globulin 4.8 g/dL Albumin/Globulin Ratio 0.7 (1.0-2.7) Lipase 505 U/L (73-393) Rhythm Strip Diag. Results EP Interpretation: yes Rate: 70 Rhythm: NSR, no PVC's, no ectopy CT/MRI/US Diagnostic Results CT/MRI/US Diagnostic Results : Impression 03/17/2020 CT abdomen pelvisIMPRESSION: Prominence of the bladder wall may be secondary to underdistention. Please correlate with urinalysis if concerned for cystitis. Nonspecific nodular thickening of the adrenal glands. Last Vital Signs Date Time Temp Pulse Resp B/P (MAP) Pulse Ox O2 Delivery O2 Flow Rate FiO2 03/19/20 04:19 97.9 03/19/20 03:30 97 14 141/92 99 Room Air Status: improved Disposition: ADMITTED INPATIENT Condition: Serious Referrals: NON PHYSICIAN (PCP) David Green 1, 2020 05:02
[2020-03-19 06:56] LABS: APPEARANCE,URINE CLEAR; BILIRUBIN, URINE NEGATIVE (NEGATIVE); GLUCOSE, URINE (UA) NEGATIVE (NEGATIVE); KETONES,URINE 1+ (NEGATIVE); LEUKOCYTE ESTERASE ,URINE NEGATIVE (NEGATIVE); NITRITE,URINE NEGATIVE (NEGATIVE); PH,URINE 5 (4.5-8.0); PROTEIN,URINE 3+ (NEGATIVE); UROBILINOGEN,URINE 1 MG/DL (0.0-1.0)
[2020-03-19 07:02] LABS: COLOR,URINE YELLOW
[2020-03-19] MEDS ORDERED: Miralax 17gm pkt ORAL PRN (07:30)
[2020-03-19] MEDS ORDERED: Zolpidem 5mg tab ORAL PRN (07:30)
[2020-03-19 07:40] VITALS: BP 150/69
[2020-03-19 08:00] VITALS: BP 155/94
[2020-03-19] MEDS ORDERED: Fleet's Mineral Oil Enema RECTAL SCH (09:00)
[2020-03-19] MEDS ORDERED: Atenolol 25mg tab ORAL SCH (09:00)
[2020-03-19] MEDS ORDERED: Heparin 5000 units/ml inj SUBQ SCH (09:00)
[2020-03-19] MEDS ORDERED: Lisinopril 2.5mg tab ORAL SCH (09:00)
[2020-03-19] MEDS ORDERED: Meloxicam 15 MG TAB ORAL SCH (09:00)
[2020-03-19] MEDS ORDERED: HYDROcodone/Acetamin 5/325 tab ORAL PRN (09:15)
[2020-03-19] MEDS: Docusate 100mg cap ORAL SCH ×2 (09:25→12:36)
[2020-03-19] MEDS: Lactulose 20gm/30ml UDC ORAL SCH ×2 (09:25→12:36)
[2020-03-19] MEDS ORDERED: NovoLOG Insulin Flexpen SUBQ SCH (11:30)
[2020-03-19 12:00] VITALS: BP 137/81
--- NOTE | 2020-03-19 13:16 | Consultation ---
History of Present Illness General Date patient seen: Mar 19, 2020 Chief Complaint: Abdominal Pain Present Illness HPI 74 year old male with hx of HTN and diabetes, chronic constipation presented to ER with CC of abdominal pain and constipation. He also c/o low back pain. He denies any vomiting denies any diarrhea. Denies any fevers or chills denies any focal weakness. He is admitted for further management. Allergies: Coded Allergies: No Known Allergies (Unverified , 11/19/15) Medication History Scheduled Aspirin* (Aspirin*), 81 MG ORAL DAILY, (Reported) Atenolol* (Tenormin*), 25 MG ORAL DAILY, (Reported) Ciprofloxacin (Ciprofloxacin HCl), 2 DROP RIGHT EYE Q4H Gabapentin* (Gabapentin*), 100 MG ORAL THREE TIMES A DAY, (Reported) Glipizide* (Glipizide*), 5 MG ORAL BIDAC, (Reported) Glipizide* (Glipizide*), 10 MG ORAL BIDAC, (Reported) Glipizide* (Glipizide*), 10 MG ORAL BIDAC, (Reported) Lidocaine Patch* (Lidoderm Patch*), 1 PATCH TOPIC DAILY Linagliptin/Metformin Hcl (Jentadueto 2.5 Mg-1000 Mg Tab), 1 EACH PO BID, ( Reported) Lisinopril (Lisinopril*), 5 MG ORAL DAILY, (Reported) Lisinopril/Hydrochlorothiazide 20-25 Mg Tab (Lisinopril-Hctz 20-25 Mg Tab), 1 TAB ORAL BID, (Reported) Magnesium Citrate (Magnesium Citrate), 150 ML PO DAILY Meloxicam* (Meloxicam*), 15 MG PO DAILY, (Reported) Metformin Hcl* (Metformin Hcl*), 500 MG ORAL TWICE A DAY, (Reported) Methocarbamol* (Robaxin-750*), 750 MG PO QID Na Phos,M-B/Na Phos,Di-Ba* (Fleet Enema*), 133 ML RECTAL DAILY Nitrofurantoin Monohyd/M-Cryst* (Macrobid 100 Mg*), 100 MG ORAL EVERY 12 HOURS Ranitidine Hcl* (Zantac*), 150 MG ORAL TWICE A DAY Triamcinolone (Triamcinolone), 10 GM MC BID Scheduled PRN Hydrocodone Bit/Acetaminophen 10-325* ([place] 10-325*), 1 TAB ORAL Q6H PRN for For Pain, (Reported) Hydrocodone Bit/Acetaminophen 5-325* ([place] 5-325*), 1 TAB ORAL Q4H PRN for For Pain, (Reported) Tramadol Hcl* (Ultram*), 50 MG ORAL Q6H PRN for For Pain Tramadol Hcl* (Ultram*), 50 MG ORAL Q6H PRN for For Pain Tramadol Hcl* (Ultram*), 50 MG ORAL Q6H PRN for For Pain Patient History Healthcare decision maker Resuscitation status Advanced Directive on File Past Medical/Surgical History Past Medical/Surgical History: (1) Diabetes mellitus (2) Hypertension (3) Constipation Review of Systems All Other Systems: negative except mentioned in HPI Physical Exam General Appearance: WD/WN, no apparent distress Lines, tubes and drains: peripheral HEENT: normocephalic, atraumatic Neck: non-tender, normal alignment Respiratory/Chest: chest wall non-tender, lungs clear, normal breath sounds Breasts: no masses Cardiovascular/Chest: normal peripheral pulses, normal rate Abdomen: normal bowel sounds, non tender Genitourinary/Rectal: normal genital exam Extremities: normal range of motion Skin Exam: normal pigmentation Neurologic: assistant store leader II-XII grossly normal Last 24 Hour Vital Signs Date Time Temp Pulse Resp B/P (MAP) Pulse Ox O2 Delivery O2 Flow Rate FiO2 03/19/20 12:00 98.7 85 20 137/81 (99) 97 03/19/20 10:07 97.9 03/19/20 09:28 150/69 03/19/20 09:28 97 149/93 03/19/20 08:00 99.0 88 20 155/94 (114) 97 03/19/20 07:55 97.9 88 18 150/69 99 Room Air 03/19/20 07:51 Room Air 03/19/20 07:40 97.9 88 18 150/69 99 Room Air 03/19/20 07:32 97.9 03/19/20 05:00 97.9 94 14 144/78 99 Room Air 03/19/20 04:19 97.9 03/19/20 03:30 98.3 97 14 141/92 99 Room Air 03/19/20 02:11 97.9 03/19/20 01:05 97.9 88 14 113/76 99 Room Air 03/19/20 01:00 90 14 Room Air 03/19/20 00:58 97.9 90 14 114/76 (89) 9 Room Air Intake and Output 03/18/20 03/19/20 18:59 06:59 # Voids 1 Laboratory Tests Test 03/19/20 01:20 03/19/20 06:45 White Blood Count 12.3 K/UL (4.8-10.8) H Red Blood Count 5.11 M/UL (4.70-6.10) Hemoglobin 13.9 G/DL (14.2-18.0) L Hematocrit 40.9 % (42.0-52.0) L Mean Corpuscular Volume 80 FL (80-99) Mean Corpuscular Hemoglobin 27.2 PG (27.0-31.0) Mean Corpuscular Hemoglobin Concent 33.9 G/DL (32.0-36.0) Red Cell Distribution Width 13.4 % (11.6-14.8) Platelet Count 304 K/UL (150-450) Mean Platelet Volume 8.1 FL (6.5-10.1) Neutrophils (%) (Auto) 71.3 % (45.0-75.0) Lymphocytes (%) (Auto) 19.1 % (20.0-45.0) L Monocytes (%) (Auto) 6.2 % (1.0-10.0) Eosinophils (%) (Auto) 2.3 % (0.0-3.0) Basophils (%) (Auto) 1.1 % (0.0-2.0) Sodium Level 139 MMOL/L (136-145) Potassium Level 3.9 MMOL/L (3.5-5.1) Chloride Level 101 MMOL/L (98-107) Carbon Dioxide Level 30 MMOL/L (21-32) Anion Gap 8 mmol/L (5-15) Blood Urea Nitrogen 17 mg/dL (7-18) Creatinine 1.5 MG/DL (0.55-1.30) H Estimat Glomerular Filtration Rate 55.3 mL/min (>60) Glucose Level 132 MG/DL (74-106) H Calcium Level 9.5 MG/DL (8.5-10.1) Total Bilirubin 0.4 MG/DL (0.2-1.0) Aspartate Amino Transf (AST/SGOT) 25 U/L (15-37) Alanine Aminotransferase (ALT/SGPT) 43 U/L (12-78) Alkaline Phosphatase 66 U/L (46-116) Total Protein 8.1 G/DL (6.4-8.2) Albumin 3.3 G/DL (3.4-5.0) L Globulin 4.8 g/dL Albumin/Globulin Ratio 0.7 (1.0-2.7) L Lipase 505 U/L (73-393) H Urine Color Yellow Urine Appearance Clear Urine pH 5 (4.5-8.0) Urine Specific [place] 1.025 (1.005-1.035) Urine Protein 3+ (NEGATIVE) H Urine Glucose (UA) Negative (NEGATIVE) Urine Ketones 1+ (NEGATIVE) H Urine Blood Negative (NEGATIVE) Urine Nitrite Negative (NEGATIVE) Urine Bilirubin Negative (NEGATIVE) Urine Urobilinogen 1 MG/DL (0.0-1.0) H Urine Leukocyte Esterase Negative (NEGATIVE) Urine RBC 0 /HPF (0 - 0) Urine WBC 0-2 /HPF (0 - 0) Urine Squamous Epithelial Cells Occasional /LPF Urine Bacteria Few /HPF (NONE) Urine Mucus Few /LPF (NONE/OCC) H Height (Feet): 5 Height (Inches): 7.00 Weight (Pounds): 228 Medications Current Medications Medications (Trade) Dose Ordered Sig/Jenni Route PRN Reason Start Time Stop Time Status Last Admin Dose Admin Acetaminophen (Tylenol) 650 mg Q4H PRN ORAL fever 03/19/20 07:30 04/18/20 07:29 Acetaminophen/ Hydrocodone Bitart ([place] 5/325) 1 tab Q6H PRN ORAL PAIN 4-10 03/19/20 09:15 03/26/20 09:14 03/19/20 09:37 Atenolol (Tenormin) 25 mg DAILY ORAL 03/19/20 09:00 04/18/20 08:59 03/19/20 09:28 Dextrose (Dextrose 50%) 25 ml Q30M PRN IV Hypoglycemia 03/19/20 07:30 06/17/20 07:29 Dextrose (Dextrose 50%) 50 ml Q30M PRN IV Hypoglycemia 03/19/20 07:30 06/17/20 07:29 Docusate Sodium (Colace) 100 mg THREE TIMES A DAY ORAL 03/19/20 09:00 04/18/20 08:59 03/19/20 09:25 Gabapentin (Neurontin) 100 mg THREE TIMES A DAY ORAL 03/19/20 09:00 04/18/20 08:59 03/19/20 12:34 Heparin Sodium (Porcine) (Heparin 5000 units/ml) 5,000 units EVERY 12 HOURS SUBQ 03/19/20 09:00 05/03/20 08:59 03/19/20 09:00 Insulin Aspart (NovoLOG) BEFORE MEALS AND HS SUBQ 03/19/20 11:30 06/17/20 11:29 03/19/20 12:07 Lactulose (Cephulac) 30 gm THREE TIMES A DAY ORAL 03/19/20 09:00 04/18/20 08:59 03/19/20 09:25 Lisinopril (ZestriL) 5 mg DAILY ORAL 03/19/20 09:00 04/18/20 08:59 03/19/20 09:28 Meloxicam (Mobic) 15 mg DAILY ORAL 03/19/20 09:00 04/18/20 08:59 03/19/20 09:26 Mineral Oil (Fleet's Mineral Oil Enema) 133 ml EVERY OTHER DAY RECTAL 03/19/20 09:00 04/18/20 08:59 03/19/20 09:35 Ondansetron HCl (Zofran) 4 mg Q6H PRN IVP Nausea & Vomiting 03/19/20 07:30 04/18/20 07:29 Polyethylene Glycol (Miralax) 17 gm HSPRN PRN ORAL Constipation 03/19/20 07:30 04/18/20 07:29 Zolpidem Tartrate (Ambien) 5 mg HSPRN PRN ORAL Insomnia 03/19/20 07:30 03/26/20 07:29 Assessment/Plan Problem List: (1) Intractable abdominal pain ICD Codes: R10.9 - Unspecified abdominal pain SNOMED: 74821290 (2) Exacerbation of chronic back pain ICD Codes: M54.9 - Dorsalgia, unspecified; G89.29 - Other chronic pain SNOMED: 265159562, 729545672 (3) Renal insufficiency ICD Codes: N28.9 - Disorder of kidney and ureter, unspecified SNOMED: 732926622, 523036936 (4) Hypertension ICD Codes: I10 - Essential (primary) hypertension SNOMED: 27746863 (5) Diabetes mellitus ICD Codes: E11.9 - Type 2 diabetes mellitus without complications SNOMED: 01499248 Assessment/Plan: GI evaluation sliding scale Novolog coverage laxatives renal evaluation renal US pain management MRI of L spine Sabrina Guerra MD Mar 19, 2020 13:15
--- NOTE | 2020-03-25 22:56 | Discharge Summary ---
Discharge Summary Discharge Summary _ DATE OF ADMISSION: 03/19/2020 DATE OF DISCHARGE: 03/19/2020 DISCHARGED BY: Dr. Cristopher Arellano CONSULTANTS: Dr. Sabrina Guerra BRIEF HOSPITAL COURSE: Patient is a 74-year-old male, who recently presented to ED due to complaints of abdominal pain and constipation. At that time, he was advised admission however felt better and wanted to go home. He presented back to ED with complaints of ongoing back pain and increased abdominal pain. He denied any vomiting or diarrhea. He reported he was able to have bowel movement with her medications previously given. Upon evaluation, CT scan imaging from the prior day was reviewed. CT scan of the abdomenpelvis showed prominence of bladder wall. WBC was mildly elevated and creatinine increased to 1.5. Lipase was elevated to 505. Patient was then admitted for evaluation of abdominal pain and pancreatitis. Patient was placed under observation. He was admitted to medical floor. He was given lisinopril and atenolol for blood pressure control. He was given pain management. He was placed on bowel regimen with Colace, lactulose and enema. Blood glucose was monitored. He was given heparin for DVT prophylaxis. He was ordered MRI of the spine due to complaints of back pain. Patient refused MRI due to claustrophobia. Patient stated he was feeling better after he had a bowel movement in the morning. Patient symptoms improved. Patient was then cleared for discharge. FINAL DIAGNOSES: Intractable abdominal pain Exacerbation of chronic back pain Renal insufficiency Hypertension Diabetes mellitus DISPOSITION: Patient was discharged home. DISCHARGE MEDICATIONS: Refer to Discharge Medication List. DISCHARGE INSTRUCTIONS: Follow-up in a week. I have been assigned to complete a discharge summary on this account, I was not involved with the patient's management.--RAUL Garza Jacqueline Robles NP Mar 25, 2020 22:56
--- NOTE | 2020-03-25 22:57 | History & Physical ---
History and Physical History & Physicial Patient was discharged prior to being seen Genet Neumann NP Mar 25, 2020 22:57
== END 2020-03-19 17:07 | disposition home or self-care (01) ==
LOC: EMR 01:09 → 3E 02:17 → EDBEDREQ 02:19
DX: R10.9 Unspecified abdominal pain (principal); G89.29 Other chronic pain; N28.9 Disorder of kidney and ureter, unspecified; I10 Essential (primary) hypertension; E11.9 Type 2 diabetes mellitus without complications; Z79.82 Long term (current) use of aspirin; Z79.899 Other long term (current) drug therapy; Z79.84 Long term (current) use of oral hypoglycemic drugs; K59.00 Constipation, unspecified; M54.5 Low back pain; K85.90 Acute pancreatitis without necrosis or infection, unspecified
CPT/HCPCS: 36415; 80053; 81003; 82962; 83690; 85025; 96361; 96374; 96375; 96376; 99284; G0378 ×2; J1644; J1815; J2270; J2405; J7030